=== PATIENT | female | born 1965 | race Caucasian/White ===

== ENCOUNTER → 2023-12-13 09:11 | Outpatient (CLI) | payer OTHER, SELFPAY ==
--- NOTE | 2023-12-13 08:15 | DI.RAD_ITS ---
Exam(s) XR FOOT RT COMPLETE EXAM: XR FOOT RT COMPLETE CLINICAL HISTORY: reduced R 1st toe ROM M79.673 PAIN IN FOOT. TECHNIQUE: 2D digital imaging was performed. Three views. COMPARISON: CR XR FOOT LT COMPLETE from 12/13/2023 FINDINGS: BONES: No acute fracture is present. No bony destructive lesion is seen. JOINTS: No dislocation present. Moderate degenerative changes of the 1st MTP joint. Spurring at the dorsal aspect of the navicular. Subchondral cyst in navicular. Plantar arch is maintained. SOFT TISSUE: Normal. IMPRESSION: Degenerative changes at the 1st MTP joint and talonavicular joint. DATA REPOSITORY: RADIATION DOSE DELIVERED:
--- NOTE | 2023-12-13 08:15 | DI.RAD_ITS ---
Exam(s) XR FOOT LT COMPLETE EXAM: XR FOOT LT COMPLETE CLINICAL HISTORY: L bunion pain M79.673 PAIN IN FOOT. TECHNIQUE: 2D digital imaging was performed. Three views. COMPARISON: No exams were available for comparison FINDINGS: BONES: No acute fracture is present. No bony destructive lesion is seen. JOINTS: No dislocation present. Moderate degenerative changes of the 1st MTP joint. Mild adjacent soft tissue swelling. No significant hallux valgus. SOFT TISSUE: Normal. IMPRESSION: Degenerative changes at 1st MTP joint. DATA REPOSITORY: RADIATION DOSE DELIVERED:
== END ==
PROVIDERS: PCP Family Medicine; Visit Provider Podiatrist
DX: M19.071 Primary osteoarthritis, right ankle and foot (principal); M19.072 Primary osteoarthritis, left ankle and foot
CPT/HCPCS: 73630